=== PATIENT | male | born 1970 | race African-American/Black ===

== ENCOUNTER 2021-09-10 13:58 | Emergency (ER) | payer SELFPAY | END 2021-09-10 14:00 | disposition home or self-care (01) | LOC: CSHERS 13:58 | DX: M25.562 Pain in left knee (principal); I10 Essential (primary) hypertension | CPT/HCPCS: 99283 ==

== ENCOUNTER 2023-01-19 18:28 | Emergency (ER) | payer SELFPAY ==
[2023-01-19 18:57] LABS: #Eosinphils 0.4 10x3/uL (0.0-0.5); #Monocytes 0.9 10x3/uL (0.0-1.1); #Neutrophils 3.6 10x3/uL (1.5-8.4); %Basophils 0.5 % (0.0-2.0); %Eosinophils 4.6 % (0.0-6.0); %Lymphocytes 38.1 % (18.0-47.0); %Monocytes 11.6 % (0.0-10.0); Hematocrit 46.9 % (38.8-50.0); Hemoglobin 15.4 g/dL (13.5-17.5); Mean Corpuscular HGB CONC 32.8 g/dL (32.0-36.0); Mean Corpuscular Hemoglobin 27.1 pg (27.0-33.0); Mean Corpuscular Volume 82.6 fl (81.2-95.1); Mean Platelet Volume 9.8 fl (7.4-10.4); Platelet Count 297 10x3/uL (150-450); RBC Distribution Width 14.6 % (11.5-14.5); Red Blood Cell (RBC) Count 5.68 10x6/uL (4.32-5.72); White Blood Cell (WBC) Count 8.1 10x3/uL (3.5-10.5)
[2023-01-19 19:24] LABS: Acetaminophen Less than 10 mcg/mL (10.0-30.0); Alcohol Less than 10.0 mg/dL (Less than 10); Lipase 14 U/L (8-78); Salicylate Less than 8.0 mg/dL (15.0-30.0)
[2023-01-19 19:25] LABS: ALT (SGPT) 15 U/L (8-55); AST (SGOT) 15 U/L (5-34); Albumin 3.9 g/dL (3.5-5.0); Alkaline Phosphatase 72 U/L (40-110); Anion Gap 14 mmol/L (10-20); BUN (Urea Nitrogen) 10 mg/dL (8.4-25.7); Bilirubin, Total 0.8 mg/dL (0.2-1.2); CK (CPK) 139 U/L (30-200); Calc. Creatinine Clearance 0 mL/min (70-130); Carbon Dioxide 25 mmol/L (22-29); Chloride 106 mmol/L (98-107); Estimated GFR 46; Globulin 3.6 g/dL (2.4-3.5); Glucose 80 mg/dL (70-105); Protein, Total 7.5 g/dL (6.0-8.3); Sodium 141 mmol/L (136-145)
[2023-01-19] MEDS ORDERED: Aspirin Chewable 81 MG TAB ONE (19:29)
[2023-01-19 19:31] LABS: Troponin I Less than 0.010 ng/mL (< 0.028)
[2023-01-19] MEDS ORDERED: HYDROcodone/Acetaminophen 5/325 mg Tablet PO PRN ×2 (20:10)
[2023-01-19] MEDS ORDERED: Acetaminophen 325 MG TAB PO PRN (20:10)
[2023-01-19] MEDS ORDERED: Atorvastatin Calcium 40 MG TAB PO SCH (21:00)
[2023-01-20] MEDS ORDERED: Aspirin 81 mg Enteric Coated Tablet PO SCH (09:00)
== END 2023-01-19 20:01 | disposition left against medical advice (07) ==
LOC: CSHERS 18:28 → SUATTDRO 18:28 → CSHERS 20:01
PROVIDERS: ADMIT Family Medicine; ATTEND Family Medicine
DX: G45.9 Transient cerebral ischemic attack, unspecified (principal); R93.89 Abnormal findings on diagnostic imaging of other specified body structures; I10 Essential (primary) hypertension
CPT/HCPCS: 36415; 36416; 70450; 71045; 80053; 80307; 82550; 83690; 84484; 85025; 93005